=== PATIENT | female | born 1950 | race African-American/Black ===

== ENCOUNTER → 2021-05-10 11:28 | Outpatient (BNVA) | payer MEDICARE, MEDICAID, OTHER, SELFPAY | PROVIDERS: PCP Internal Medicine; Visit Provider Nurse Practitioner Family | DX: G20 Parkinson's disease (principal); F03.90 Unspecified dementia, unspecified severity, without behavioral disturbance, psychotic disturbance, mood disturbance, and anxiety; M19.90 Unspecified osteoarthritis, unspecified site; R90.82 White matter disease, unspecified | CPT/HCPCS: 99212 ==

== ENCOUNTER → 2021-08-30 10:58 | Outpatient (BNVA) | payer MEDICARE, MEDICAID, SELFPAY | PROVIDERS: PCP Internal Medicine; Visit Provider Nurse Practitioner Family | DX: G20 Parkinson's disease (principal); F03.90 Unspecified dementia, unspecified severity, without behavioral disturbance, psychotic disturbance, mood disturbance, and anxiety | CPT/HCPCS: 99212 ==

== ENCOUNTER → 2021-12-06 10:58 | Outpatient (BNVA) | payer MEDICARE, MEDICAID, SELFPAY | PROVIDERS: PCP Internal Medicine; Visit Provider Nurse Practitioner Family | DX: G20 Parkinson's disease (principal); F02.80 Dementia in other diseases classified elsewhere, unspecified severity, without behavioral disturbance, psychotic disturbance, mood disturbance, and anxiety; Z79.899 Other long term (current) drug therapy | CPT/HCPCS: 99212 ==

== ENCOUNTER → 2022-03-13 10:59 | Outpatient (BNVA) | payer MEDICARE, MEDICAID, SELFPAY | PROVIDERS: PCP Internal Medicine; Visit Provider Nurse Practitioner Family | DX: G20 Parkinson's disease (principal) | CPT/HCPCS: 99212 ==

== ENCOUNTER → 2022-09-12 10:48 | Outpatient (BNVA) | payer MEDICARE, MEDICAID, SELFPAY | PROVIDERS: PCP Internal Medicine; Visit Provider Nurse Practitioner Family | DX: G20 Parkinson's disease (principal); F03.90 Unspecified dementia, unspecified severity, without behavioral disturbance, psychotic disturbance, mood disturbance, and anxiety | CPT/HCPCS: 99212 ==

== ENCOUNTER 2023-01-22 13:36 | Outpatient (AMB) | payer MEDICARE, MEDICAID, SELFPAY ==
--- NOTE | 2023-01-22 13:40 | A.OFFVIS_ITS ---
Intake Vital Signs 01/22/23 13:43 Height 5 ft 3 in Weight 118 lb BMI 20.9 Pulse 76 Pulse Source Pulse Oximeter Pulse Oximetry (%) 96 Oxygen Delivery Method Room Air Intake Visit Reasons: 4m follow up Parkinson's-Confirmed Intake Note: Patient presents for 4 month follow up Parkinson. Patient states no issues or concerns. Allergies carbidopa [From Sinemet] Allergy (Mild, Verified 01/22/23 13:42) unknown levodopa [From Sinemet] Allergy (Mild, Verified 01/22/23 13:42) unknown Penicillins Allergy (Mild, Verified 01/22/23 13:42) unknown Medication List - Last Reconciled 01/22/23 by Yasemin Vo, SRINIVAS carbidopa-levodopa 25-100 mg ER 1 tab PO BEDTIME 30 days carbidopa-levodopa 50-200 mg ER 1 tab PO BID 30 days lisinopril 5 mg PO DAILY memantine 28 mg PO DAILY 30 days pimavanserin (Nuplazid) 34 mg PO DAILY 30 days quetiapine 50 mg PO BEDTIME PRN 30 days rotigotine (Neupro) 1 patch topical DAILY 30 days sennosides (senna) 17.2 mg PO BEDTIME PRN triamcinolone acetonide 0.1% topical HPI HPI Comments History of Present Illness Details 72-yr-old female presents for f/u visit, accompanied by her Tyron Pt was admitted to [facility] a month ago for + Covid-19 and she was not eating or drinking. During the hospitalization, she was almost non-verbal. She was discharged home after 1 week, and returned home with home Nsg and PT. Pt's report pt did develop a coccyx pressure ulcer- her nurse has been monitoring and helping with wound care. Since being home, she has been eating and drinking better- has gained some of her weight loss back. She is needing even more assist. She was not walking, but is starting to walk a bit more- but only w/ assist. She sometimes feels dizzy. No tremor. Sometimes will talk with no one there. Occasionally may mention seeing someone. Her sleep can be more off. Sometimes not taking the CD-LD bedtime dose as she will not take the Quetiapine and then the CD-LD ER- was thinking about crushing the CD-LD ER. [facility] Medical History (Reviewed 09/12/22 @ 11:02 by Veronica Martin [facility]) Arthritis Cancer of left breast Headache Surgical History H/O shoulder surgery History of knee replacement procedure of left knee History of lumpectomy of left breast History of hysterectomy Family History Other No known health problems Social History Alcohol intake: never Patient Tobacco Use Status: Never used Tobacco Review of Systems Const All systems reviewed & are unremarkable except as noted in HPI and below Physical Exam Vital Signs: Last Vital Signs Pulse 76 01/22/23 13:43 Pulse Ox 96 01/22/23 13:43 Oxygen Delivery Method Room Air 01/22/23 13:43 BMI result Body Mass Index 20.9 Const General: cooperative and no acute distress Resp Effort & Inspection: normal respiratory effort and able to speak in complete sentences Neuro Other: General: Oriented to her . Bradyphrenia. Better able to follow directions today. Expression: decreased expression and blink Voice: hypophonia Tremor: No tremor Tone: BUE rigidity FFM: Bradykinesia Foot taps: Bradykinesia Gait: sitting w/ stoop in w/c. Cognition: Bradyphrenia Psych: Pleasant affect Psych Appearance: grossly normal Assessment & Plan Assessment & Plan (1) Parkinson's disease without dyskinesia: Code(s): G20.A1 - Parkinson's disease without dyskinesia, without mention of fluctuations (2) Dementia: Code(s): F03.90 - Unspecified dementia, unspecified severity, without behavioral disturbance, psychotic disturbance, mood disturbance, and anxiety (3) Psychosis due to Parkinson's disease: Code(s): G20 - Parkinson's disease (4) White matter abnormality on MRI of brain: Comment: extensive bilateral white matter disease. Code(s): R90.82 - White matter disease, unspecified Plan Continue supportive care. Continue coccyx wound care. Continue Sinemet ER 50-200mg 1 tab q am and q afternoon. Hold Sinemet ER 25-100mg qhs. Instead, try Ryatry 23.75-95mg- 2-4 caps q evening to bedtime- in hopes this improves consistency and effect Continue Neupro patch 6 mg qd. Continue Nuplazid 34mg qd. Continue Quetiapine 50mg- 1 tab prn per day. f/u in 3-4 months or sooner prn. 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
[2023-01-22 13:43] VITALS: PULSE 76; O2SAT 96; BMI 20.9
== END 2023-01-22 14:15 | disposition home or self-care (01) ==
PROVIDERS: PCP Internal Medicine; Visit Provider Nurse Practitioner Family
DX: G20.A1 Parkinson's disease without dyskinesia, without mention of fluctuations (principal); F02.82 Dementia in other diseases classified elsewhere, unspecified severity, with psychotic disturbance; R90.82 White matter disease, unspecified
CPT/HCPCS: 99214

== ENCOUNTER → 2023-01-22 13:36 | Outpatient (BNVA) | payer MEDICARE, MEDICAID, SELFPAY | PROVIDERS: PCP Internal Medicine; Visit Provider Nurse Practitioner Family | DX: G20.A1 Parkinson's disease without dyskinesia, without mention of fluctuations (principal); F03.90 Unspecified dementia, unspecified severity, without behavioral disturbance, psychotic disturbance, mood disturbance, and anxiety; R90.82 White matter disease, unspecified | CPT/HCPCS: 99212 ==

== ENCOUNTER 2023-05-08 12:55 | Outpatient (AMB) | payer MEDICARE, MEDICAID, SELFPAY ==
--- NOTE | 2023-05-08 13:02 | A.OFFVIS_ITS ---
Intake Vital Signs 05/08/23 13:03 Height 5 ft 3 in Intake Visit Reasons: 4 mo f/u Parkinson-Confirmed Intake Note: Patient presents for 4 month follow up. No issues,this is just a follow up. Allergies carbidopa [From Sinemet] Allergy (Mild, Verified 05/08/23 13:07) unknown levodopa [From Sinemet] Allergy (Mild, Verified 05/08/23 13:07) unknown Penicillins Allergy (Mild, Verified 05/08/23 13:07) unknown Medication List - Last Reconciled 05/08/23 by SRINIVAS Armando carbidopa-levodopa 23.75-95 mg ER (Rytary) 2 - 4 caps PO ONCE 30 days carbidopa-levodopa 50-200 mg ER 1 tab PO BID 30 days lisinopril 5 mg PO DAILY memantine 28 mg PO DAILY 30 days pimavanserin (Nuplazid) 34 mg PO DAILY 30 days quetiapine 50 mg PO BEDTIME PRN 30 days rotigotine (Neupro) 1 patch topical DAILY 30 days sennosides (senna) 17.2 mg (2 x 8.6 mg) PO BEDTIME PRN 90 days triamcinolone acetonide 0.1% topical HPI HPI Comments History of Present Illness Details 73-yr-old female presents for f/u visit, accompanied by her , Tyron. Pt's current PD medication regimen: Sinemet ER 50-200mg 1 tab q am and q afternoon. Ryatry 23.75-95mg- 2 caps qhs- this had been helpful, but pt is not swallowing the cap recently. Neupro patch 6 mg qd. Nuplazid 34mg qd. Quetiapine 50mg- 1 tab prn? She will be having a palliative care nurse from [facility] again- was paused after she had the Covid-19 infection. Pt's PD and cognitive s/s are progressing. is trying to make sure she is eating enough, giving her 2 Boosts per day, smaller breakfast and lunch, eating 1 morelos meal per day at dinner, and snacks- banana. She is needing more assist, helps her eat. Not talking as much, her voice is softer. No tremor. Can walk a very short distance if holding her 's hands. But cannot walk with a walker anymore. Requests refill of senna which helps manage constipation She is not mentioning the hallucinations as much- sometimes makes motions which indicate they are present. Sometimes will talk with no one there. Occasionally may mention seeing someone. She is more sleepy. Coccyx wound has healed, her is applying A&D to coccyx for prevention. [facility] Medical History (Updated 05/10/23 @ 19:52 by SRINIVAS Armando) Parkinson's disease Arthritis Cancer of left breast Headache Surgical History H/O shoulder surgery History of knee replacement procedure of left knee History of lumpectomy of left breast History of hysterectomy Family History Other No known health problems Social History Alcohol intake: never Patient Tobacco Use Status: Never used Tobacco Review of Systems Const All systems reviewed & are unremarkable except as noted in HPI and below Physical Exam Const General: cooperative and no acute distress Resp Effort & Inspection: normal respiratory effort and able to speak in complete sentences Neuro Other: General: Alert, oriented to . Bradyphrenia. Expression: decreased expression and blink Voice: Marked hypophonia Tremor: No tremor Tone: BUE rigidity FFM: Bradykinesia Foot taps: Bradykinesia Gait: Stopped, Left tilt sitting in w/c. 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 Concur w/ resuming home palliative care. Continue nutritional supplement- bid. Continue protective skin care. Discussed increasing Levodopa to reduce bradykinesia, however they would like to try giving opening Rytary cap and putting in applesauce first- to improve intake/efficacy. If this does not help, we can trial a small increase in Levodopa- however would need to use care to not exacerbate hallucinations. Continue Sinemet ER 50-200mg 1 tab q am and q afternoon. Continue Rytary 23.75-95mg- 2-4 caps qhs. May open cap and place in applesauce. Continue Neupro patch 6 mg qd. Continue Nuplazid 34mg qd. Continue Quetiapine 50mg- 1 tab prn per day. Will refill Senna 8.7mg tab- 2 tabs qhs prn. f/u in 3-4 months or sooner prn. Medications: Changed From sennosides (senna) 17.2 mg PO BEDTIME PRN constipation To sennosides (senna) 17.2 mg (2 x 8.6 mg) PO BEDTIME 90 days PRN 180 tabs 1RF constipation Refilled rotigotine (Neupro) 1 patch topical DAILY 30 days 30 ea 6RF Discontinued carbidopa-levodopa 25-100 mg ER Discontinued Reason: Doctor's Order 1 tab PO BEDTIME 30 days 30 tabs 6RF Coding Level of Care Code Est Pt Level 4 (66646) Diagnoses Parkinson's disease without dyskinesia G20.A1 Dementia F03.90 Psychosis due to Parkinson's disease G20
== END 2023-05-08 13:48 | disposition home or self-care (01) ==
PROVIDERS: PCP Internal Medicine; Visit Provider Nurse Practitioner Family
DX: G20.A1 Parkinson's disease without dyskinesia, without mention of fluctuations (principal); F02.82 Dementia in other diseases classified elsewhere, unspecified severity, with psychotic disturbance
CPT/HCPCS: 99214

== ENCOUNTER → 2023-05-08 12:55 | Outpatient (BNVA) | payer MEDICARE, MEDICAID, SELFPAY | PROVIDERS: PCP Internal Medicine; Visit Provider Nurse Practitioner Family | DX: G20.A1 Parkinson's disease without dyskinesia, without mention of fluctuations (principal); F03.90 Unspecified dementia, unspecified severity, without behavioral disturbance, psychotic disturbance, mood disturbance, and anxiety | CPT/HCPCS: 99212 ==